=== PATIENT | female | born 1945 | race Caucasian/White ===

== ENCOUNTER 2019-12-07 17:16 | Emergency (ER) | payer OTHER ==
[2019-12-07] MEDS ORDERED: LIDOCAINE 1% MPF 30 ML VIAL ONE (17:29)
--- NOTE | 2019-12-07 18:47 | EDPHYS ---
Physician Documentation [facility] Name: Amy Maddox Age: 74 yrs Sex: Female : 1945 Arrival Date: 12/07/2019 Time: 17:21 Bed 20 Private MD: ED Physician Rocco Pozo HPI: 12/07 18:43 This 74 yrs old Female presents to ER via EMS with complaints of Fall Injury. rn 18:43 Details of fall: The patient fell from an upright position. Onset: The symptoms/episode rn began/occurred just prior to arrival. Associated injuries: The patient sustained upper lip. Severity of symptoms: At their worst the symptoms were mild, in the emergency department the symptoms are unchanged. The patient has not experienced similar symptoms in the past. Reports fall from standing, tripped, struck ground with face, + laceration to upper lip, no LOC, on plavix. Does not feel like broke anything. Teeth feel good for her. . Historical: - Allergies: 19:42 Sulfa (Sulfonamide Antibiotics); tw2 19:42 PENICILLINS; tw2 - Home Meds: 19:42 clopidogrel 75 mg oral tab 1 tab once daily [Active]; atorvastatin 40 mg oral tab 1 tab tw2 once daily [Active]; "i cant remember what else right now" [Active]; - PMHx: 19:42 Hyperlipidemia; tw2 - PSHx: 19:42 cardiac stents; tw2 - Immunization history:: Last tetanus immunization: unknown. - Immunization history: Last tetanus immunization: unknown. - Social history:: Smoking status: . - Family history:: not pertinent. - Ebola Screening: : Patient denies travel to an Ebola-affected area in the 21 days before illness onset. - Hospitalizations: : No recent hospitalization is reported. ROS: 18:43 Constitutional: Negative for fever, chills, and weight loss, Eyes: Negative for injury, rn pain, redness, and discharge, ENT: + upper lip laceration Neck: Negative for injury, pain, and swelling, Cardiovascular: Negative for chest pain, palpitations, and edema, Respiratory: Negative for shortness of breath, cough, wheezing, and pleuritic chest pain, Abdomen/GI: Negative for abdominal pain, nausea, vomiting, diarrhea, and constipation, MS/Extremity: Negative for injury and deformity, Skin: Negative for injury, rash, and discoloration, Neuro: Negative for headache, weakness, numbness, tingling, and seizure. Exam: 18:43 Constitutional: This is a well developed, well nourished patient who is awake, alert, rn and in no acute distress. Head/Face: Normocephalic, 3 cm irregular inner-upper lip laceration with venous bleeding that is controlled with pressure Eyes: Pupils equal round and reactive to light, extra-ocular motions intact. Lids and lashes normal. Conjunctiva and sclera are non-icteric and not injected. Cornea within normal limits. Periorbital areas with no swelling, redness, or edema. ENT: Teeth aligned normally, no gingival laceration. Neck: Trachea midline, no thyromegaly or masses palpated, and no cervical lymphadenopathy. Supple, full range of motion without nuchal rigidity, or vertebral point tenderness. No Meningismus. Cardiovascular: Regular rate and rhythm. No pulse deficits. Respiratory: No increased work of breathing, no retractions or nasal flaring. Abdomen/GI: soft, non-tender MS/ Extremity: Pulses equal, no cyanosis. Neurovascular intact. Full, normal range of motion. Equal circumference. Neuro: Awake and alert, GCS 15, oriented to person, place, time, and situation. Cranial nerves II-XII grossly intact. Motor strength 5/5 in all extremities. Sensory grossly intact. Cerebellar exam normal. Normal gait. Vital Signs: 17:24 BP 142 / 123; Pulse 56; Resp 17; Temp 97.6(TE); Pulse Ox 96% on R/A; Weight 65.77 kg tw2 (R); Height 5 ft. 9 in. (175.26 cm); Pain 9/10; 18:27 BP 164 / 58; Pulse 56; Resp 17; Pulse Ox 95% on R/A; tw2 19:20 BP 161 / 60; Pulse 60; Resp 18; Pulse Ox 95% on R/A; tw2 17:24 Body Mass Index 21.41 (65.77 kg, 175.26 cm) tw2 Acme Coma Score: 17:11 Eye Response: spontaneous(4). Verbal Response: oriented(5). Motor Response: obeys tw2 commands(6). Total: 15. Trauma Score (Adult): 17:11 Eye Response: spontaneous(1); Verbal Response: oriented(1); Motor Response: obeys tw2 commands(2); Systolic BP: > 89 mm Hg(4); Respiratory Rate: 10 to 29 per min(4); Acme Score: 15; Trauma Score: 12 Laceration: 18:43 Wound Repair of 3cm ( 1.2in ) subcutaneous laceration to upper lip. Distal rn neuro/vascular/tendon intact. Anesthesia: Wound infiltrated with 2 mls of 1% lidocaine. Wound prep: Extensive cleansing with betadine by me. Skin closed with 6 4-0 gut using interrupted sutures and sterile technique. Dressed with 4x4's. Patient tolerated well. MDM: 17:25 Patient medically screened. rn 18:43 Differential diagnosis: contusion, laceration. Data reviewed: vital signs, nurses rn notes, and as a result, I will discharge patient. Counseling: I had a detailed discussion with the patient and/or guardian regarding: the historical points, exam findings, and any diagnostic results supporting the discharge/admit diagnosis, the need for outpatient follow up, to return to the emergency department if symptoms worsen or persist or if there are any questions or concerns that arise at home. Special discussion: I discussed with the patient/guardian in detail that at this point there is no indication for admission to the hospital. It is understood, however, that if the symptoms persist or worsen the patient needs to return immediately for re-evaluation. ED course: Normal neuro exam, is joking, no focal head injury other than lips, will dc home. . 12/07 18:26 Order name: Dressing - Wound; Complete Time: 18:27 tw12/07 18:26 Order name: Gloves, Sterile; Complete Time: 18:27 tw2 12/07 18:26 Order name: Setup Suture Tray; Complete Time: 18:27 tw2 12/07 18:26 Order name: Ice pack; Complete Time: 18:27 tw2 Administered Medications: 18:02 Drug: Lidocaine (1 %) 20 ml {Note: by dr. pozo .} Volume: 20 ml; Route: Infiltration; tw2 19:10 Drug: Tetanus-Diphtheria Toxoid Adult 0.5 ml {Wild Life Manager: [employer]. Exp: 12/01/2021. Lot #: [id number]. } Route: IM; Site: right deltoid; 19:23 Follow up: Response: No adverse reaction tw2 Disposition: 12/07/19 18:46 Discharged to Home. Impression: Laceration without foreign body of lip. - Condition is Stable. - Discharge Instructions: Facial Laceration. - Prescriptions for Augmentin 875- 125 mg Oral Tablet - take 1 tablet by ORAL route every 12 hours for 10 days; 20 tablet. - Medication Reconciliation Form, Thank You Letter, Antibiotic Education, Prescription Opioid Use form. - Follow up: Private Physician; When: As needed; Reason: Recheck today's complaints, Re-evaluation by your physician. - Problem is new. - Symptoms have improved. Signatures: Rocco Pozo MD MD rn Jeter, KIARA Bowden RN tw2 Corrections: (The following items were deleted from the chart) 19:25 18:46 12/07/2019 18:46 Discharged to Home. Impression: Laceration without foreign body tw2 of lip. Condition is Stable. Forms are Medication Reconciliation Form, Thank You Letter, Antibiotic Education, Prescription Opioid Use. Follow up: Private Physician; When: As needed; Reason: Recheck today's complaints, Re-evaluation by your physician. Problem is new. Symptoms have improved. rn
--- NOTE | 2019-12-07 18:47 | ER ---
Nurse's Notes [facility] Name: Amy Maddox Age: 74 yrs Sex: Female : 1945 Arrival Date: 12/07/2019 Time: 17:21 Bed 20 Private MD: Diagnosis: Laceration without foreign body of lip Presentation: 12/07 17:11 Presenting complaint: EMS states: pt was walking into [facility] restaurant, tripped on tw2 curb, face hit the side of curb and she busted her lip, upper inner lip, pt c/o RIGHT arm pain but can move her arm, pt is on blood thinners. Transition of care: patient was not received from another setting of care. Onset of symptoms was December 07, 2019. Risk Assessment: Do you want to hurt yourself or someone else? Patient reports no desire to harm self or others. Initial Sepsis Screen: Does the patient meet any 2 criteria? No. Patient's initial sepsis screen is negative. Does the patient have a suspected source of infection? No. Patient's initial sepsis screen is negative. Care prior to arrival: pressure dressing and 4x4 gauze applied and pt is still bleeding. 17:11 Method Of Arrival: EMS: [facility] tw2 17:11 Acuity: ROXANNA 3 tw2 17:11 Mechanism of Injury: Fall from standing position. Trauma event details: Injury occurred tw2 in the [facility]. Triage Assessment: 17:11 General: Appears uncomfortable, slender, Behavior is calm, cooperative, appropriate for tw2 age. Pain: Complains of pain in frenulum, upper mary border and upper lip. EENT: No signs and/or symptoms were reported regarding the EENT system. Neuro: Level of Consciousness is awake, alert, obeys commands, Oriented to person, place, time, situation. Trauma Activation: Alert Physician: ED Physician; Name: ; Notified At: ; Arrived At: Physician: General Surgeon; Name: ; Notified At: ; Arrived At: Physician: Radiology; Name: ; Notified At: ; Arrived At: Physician: Respiratory; Name: ; Notified At: ; Arrived At: Physician: Lab; Name: ; Notified At: ; Arrived At: Historical: - Allergies: 19:42 Sulfa (Sulfonamide Antibiotics); tw2 19:42 PENICILLINS; tw2 - Home Meds: 19:42 clopidogrel 75 mg oral tab 1 tab once daily [Active]; atorvastatin 40 mg oral tab 1 tab tw2 once daily [Active]; "i cant remember what else right now" [Active]; - PMHx: 19:42 Hyperlipidemia; tw2 - PSHx: 19:42 cardiac stents; tw2 - Immunization history:: Last tetanus immunization: unknown. - Immunization history: Last tetanus immunization: unknown. - Social history:: Smoking status: . - Family history:: not pertinent. - Ebola Screening: : Patient denies travel to an Ebola-affected area in the 21 days before illness onset. - Hospitalizations: : No recent hospitalization is reported. Screenin:00 Fall Risk Fall in past 12 months (25 points). ea 19:24 Abuse screen: Denies threats or abuse. Nutritional screening: No deficits noted. ea Tuberculosis screening: No symptoms or risk factors identified. Primary Survey: 17:11 Uncontrolled hemorrhage is observed, assessment has been re-ordered to <C> ABC. A: The tw2 patient is alert. Airway: patent. Breathing/Chest: Respiratory pattern: regular, Respiratory effort: spontaneous, unlabored, Breath sounds: clear, bilaterally. Circulation: Heart tones present. Disability Alert. Exposure/Environment: All clothing and personal items were removed. Forensic evidence collection is not deemed to be indicated at this time. Items placed in patient belonging bag. There is evidence of uncontrolled external hemorrhage. Provider notified immediately. Methods to control bleeding applied. pressure dressing applied at this time, Dr. Pozo at bedside. 18:11 Reassessment Airway Airway Patent Breathing/Chest Respiratory pattern Regular tw2 Respiratory effort Spontaneous Unlabored Circulation Heart tones Present Temperature Warm Dry Disability Alert. Secondary Survey: 18:11 HEENT: Face Other abrasion noted to upper lip, laceration noted to inside of upper lip. tw2 Gastrointestinal: No deficits noted. Abdomen is soft, Bowel sounds present in all quadrants. : No signs and/or symptoms were reported regarding the genitourinary system. Musculoskeletal: No signs and/or symptoms reported regarding the musculoskeletal system. Range of motion: intact in all extremities. Assessment: 17:11 General: Appears in no apparent distress. Behavior is calm, cooperative, appropriate tw2 for age. Pain: Complains of pain in mouth. Neuro: Level of Consciousness is awake, alert, obeys commands, Oriented to person, place, time, situation. Cardiovascular: Heart tones S1 S2 Patient's skin is warm and dry. Respiratory: Airway is patent Respiratory effort is even, unlabored, Respiratory pattern is regular, symmetrical, Breath sounds are clear bilaterally. GI: No signs and/or symptoms were reported involving the gastrointestinal system. Abdomen is flat, Bowel sounds present X 4 quads. : No signs and/or symptoms were reported regarding the genitourinary system. EENT: No signs and/or symptoms were reported regarding the EENT system. Derm: No signs and/or symptoms reported regarding the dermatologic system. Musculoskeletal: Reports pain in right arm. Injury Description: Laceration sustained to mouth and upper lip and upper mary border moderate bleeding noted at this time. 18:24 Reassessment: Patient appears in no apparent distress at this time. Patient and/or tw2 family updated on plan of care and expected duration. Pain level reassessed. Patient is alert, oriented x 3, equal unlabored respirations, skin warm/dry/pink. Patient states symptoms have improved. 19:24 Reassessment: Patient appears in no apparent distress at this time. Patient and/or tw2 family updated on plan of care and expected duration. Pain level reassessed. Patient is alert, oriented x 3, equal unlabored respirations, skin warm/dry/pink. Patient states feeling better. Patient states symptoms have improved. Vital Signs: 17:24 BP 142 / 123; Pulse 56; Resp 17; Temp 97.6(TE); Pulse Ox 96% on R/A; Weight 65.77 kg tw2 (R); Height 5 ft. 9 in. (175.26 cm); Pain 9/10; 18:27 BP 164 / 58; Pulse 56; Resp 17; Pulse Ox 95% on R/A; tw2 19:20 BP 161 / 60; Pulse 60; Resp 18; Pulse Ox 95% on R/A; tw2 17:24 Body Mass Index 21.41 (65.77 kg, 175.26 cm) tw2 Trung Coma Score: 17:11 Eye Response: spontaneous(4). Verbal Response: oriented(5). Motor Response: obeys tw2 commands(6). Total: 15. Trauma Score (Adult): 17:11 Eye Response: spontaneous(1); Verbal Response: oriented(1); Motor Response: obeys tw2 commands(2); Systolic BP: > 89 mm Hg(4); Respiratory Rate: 10 to 29 per min(4); Trung Score: 15; Trauma Score: 12 ED Course: 17:11 Thermoregulation: pt dressed in long sleeve shirt, refused blanket at this time. tw2 17:21 Patient arrived in ED. tw2 17:21 Rococ Pozo MD is Attending Physician. tw2 17:21 Bed in low position. Call light in reach. alarm security or surveillance monitor on. Pulse ox on. NIBP on. tw2 17:24 Triage completed. tw2 18:00 Assist provider with laceration repair on upper lip that was 2.5 cm. or less using tw2 sutures. Set up tray. Performed by Rocco Pozo MD Dressed with 4X4s, Patient tolerated well. Patient did not have IV access during this emergency room visit. 18:25 Dennise Jeter RN is Primary Nurse. tw2 19:00 Patient maintains SpO2 saturation greater than 95% on room air. ea 19:00 Arm band placed on right wrist. Patient placed in an exam room, on a stretcher, on ea pulse oximetry. Administered Medications: 18:02 Drug: Lidocaine (1 %) 20 ml {Note: by dr. pozo .} Volume: 20 ml; Route: Infiltration; tw2 19:10 Drug: Tetanus-Diphtheria Toxoid Adult 0.5 ml {Visual Education Teacher: [employer]. Exp: tw2 12/01/2021. Lot #: [id number]. } Route: IM; Site: right deltoid; 19:23 Follow up: Response: No adverse reaction tw2 Intake: 17:11 PO: 0ml; Total: 0ml. tw2 Outcome: 18:46 Discharge ordered by . rn 19:24 Discharged to home via wheelchair, with friend. tw2 19:24 Condition: stable 19:24 Discharge instructions given to patient, friend, Instructed on discharge instructions, follow up and referral plans. medication usage, wound care, Demonstrated understanding of instructions, follow-up care, medications, wound care, Prescriptions given X 1. 19:24 Patient's length of stay in the Emergency Department was greater than 2 hours. d/t tw2 several critical care pts in the ER at this time.Patient's length of stay extended due to 19:25 Patient left the ED. tw2 Signatures: Rocco Pozo MD MD rn Dennise Jeter RN RN tw2 Carol Boyer RN RN ea Corrections: (The following items were deleted from the chart) 19:24 19:23 Reassessment: Patient and/or family updated on plan of care and expected tw2 duration. Pain level reassessed. Patient is alert, oriented x 3, equal unlabored respirations, skin warm/dry/pink. Discharge intruction given to patient, verbalized the understanding of instruction. Pt left ED tolerating well. ea
[2019-12-07] MEDS ORDERED: TETANUS & DIPHTHERIA TOX,ADULT 0.5 ML VIAL ONE (19:15)
[2019-12-08 01:17] VITALS: TEMP 97.6
[2019-12-08 01:18] VITALS: BP 164/58; O2SAT 95
== END 2019-12-07 19:25 | disposition home or self-care (01) ==
LOC: ER 17:16
PROC: 0CQ0XZZ Repair Upper Lip, External Approach (ICD-10-PCS; principal; 2019-12-07)
DX: S01.511A Laceration without foreign body of lip, initial encounter (principal); W01.198A Fall on same level from slipping, tripping and stumbling with subsequent striking against other object, initial encounter; Y93.01 Activity, walking, marching and hiking; Y92.9 Unspecified place or not applicable; Z23 Encounter for immunization; Z79.01 Long term (current) use of anticoagulants; Z88.0 Allergy status to penicillin; Z88.2 Allergy status to sulfonamides; Z95.818 Presence of other cardiac implants and grafts; E78.5 Hyperlipidemia, unspecified
CPT/HCPCS: 90471; 90714; 99285